=== PATIENT | male | born 1970 | race African-American/Black ===

== ENCOUNTER 2018-06-03 10:35 | Emergency (ER) | payer MEDICARE, MEDICAID ==
[2018-06-03] MEDS ORDERED: Ketorolac Tromethamine 60 MG/2 ML VIAL ONE (11:44)
--- NOTE | 2018-06-03 12:19 | RAD ---
RADIOGRAPH RIGHT HIP 2 VIEWS: Date: 06/03/18 HISTORY: 48-year-old male with right hip pain. COMPARISON: 05/10/03. FINDINGS: The previously demonstrated hip replacement arthroplasty hardware remains, including acetabular cup, and femoral stem that reaches the mid diaphysis of the femur. There is no evidence of hardware loosen ing, dislocation, or acute fracture. There is a new finding of heterotopic ossification anterior, sup erior, and lateral to the greater trochanter. IMPRESSION: 1. Status post total right hip replacement arthroplasty, with intact hardware. 2. Multiple small foci of heterotopic ossification adjacent to the right hip. POS: [facility]
== END 2018-06-03 12:27 | disposition home or self-care (01) ==
LOC: ERS 10:35
DX: M25.551 Pain in right hip (principal); I10 Essential (primary) hypertension; F17.210 Nicotine dependence, cigarettes, uncomplicated
CPT/HCPCS: 96372; J1885

== ENCOUNTER 2020-02-01 09:47 | Emergency (ER) | payer MEDICARE, MEDICAID ==
--- NOTE | 2020-02-01 10:38 | RAD ---
XR Hand Lt 3 View STANDARD HISTORY: Injury, left hand pain FINDINGS: No fracture or dislocation is identified.
== END 2020-02-01 11:16 | disposition home or self-care (01) ==
LOC: ERS 09:47
DX: S60.222A Contusion of left hand, initial encounter (principal); I10 Essential (primary) hypertension; F17.210 Nicotine dependence, cigarettes, uncomplicated; W19.XXXA Unspecified fall, initial encounter

== ENCOUNTER 2020-02-22 09:29 | Emergency (ER) | payer MEDICARE, MEDICAID | END 2020-02-22 09:52 | disposition home or self-care (01) | LOC: ERS 09:29 | DX: L02.214 Cutaneous abscess of groin (principal); I10 Essential (primary) hypertension; F17.210 Nicotine dependence, cigarettes, uncomplicated; Z79.82 Long term (current) use of aspirin | CPT/HCPCS: 99282 ==